=== PATIENT | female | born 1970 | race Caucasian/White ===

== ENCOUNTER 2017-04-19 20:27 | Emergency (ER) | payer SELFPAY ==
[2017-04-19] MEDS: 0.9 % SODIUM CHLORIDE 1,000 ML IV ONE (20:45)
[2017-04-19] MEDS: KETOROLAC TROMETHAMINE 30 MG/1ML VIAL IVP ONE (21:00)
--- NOTE | 2017-04-19 21:06 | ED Physician Documentation ---
General Adult - HISTORIAN Historian: patient - HPI Stated Complaint: POSS KIDNEY STONE Chief Complaint: General Adult Onset: days ago (7) Further Comments: yes (47 year old female patient presents with complaints of urinary frequency and right lower back pain x 7 days. Patient concerned she has a kidney stone again. Patient denies fever, chills, cough or chest pain. C/O diarrhea and nausea.) - ROS CONST: no problems EYES/ENT: none CVS/RESP: none GI/: problems urinating, nausea, diarrhea. denies: abdominal pain, vomiting MS/SKIN/LYMPH: none NEURO/PSYCH: denies: headache - PAST HX Past History: renal disease Surgeries/Procedures: BTL Allergies/Adverse Reactions: Allergies Allergy/AdvReac Type Severity Reaction Status Date / Time acetaminophen [From Vicodin] AdvReac Intermediate Nausea/Vomi Verified 04/19/17 20:39 ting hydrocodone bitartrate AdvReac Intermediate Nausea/Vomi Verified 04/19/17 20:39 [From Vicodin] ting Home Medications: Ambulatory Orders Medication Instructions Recorded NK [NK] 04/19/17 - SOCIAL HX Smoking History: cigarettes - FAMILY HX Family History: No - VITAL SIGNS Vital Signs: Vital Signs Temp Pulse Resp BP Pulse Ox 98.6 F 93 H 18 105/74 97 04/19/17 20:27 04/19/17 20:27 04/19/17 20:27 04/19/17 20:27 04/19/17 20:27 - REVIEWED ASSESSMENTS Nursing Assessment Reviewed: Yes Vitals Reviewed: Yes Progress - Progress Progress: Patient medicated for pain with toradol and norflex. Zofran given for nausea. Patient states she feels better at discharge. Instructed to use OTC anti diarrheal. ED Results Lab/Radiology - Orders Orders: ED Orders Category Date Time Status CBC/PLATELET/DIFF Stat Lab 04/19/17 21:00 Received CMP Stat Lab 04/19/17 21:00 Received UA W/MICRO IF INDICATED Stat Lab 04/19/17 20:36 Ordered 0.9 % Sodium Chloride [Normal Saline] 1,000 ml Med 04/19/17 20:36 Discontinued IV NOW Ketorolac Tromethamine [Toradol] Med 04/19/17 20:36 Discontinued 30 mg IVP NOW ONE Ondansetron HCl/Pf [Zofran 4 mg/2 ml] Med 04/19/17 21:04 Discontinued 4 mg IVP NOW ONE General Adult Physical Exam - PHYSICAL EXAM GENERAL APPEARANCE: mild distress EENT: eye inspection normal, ANKUSH RESPIRATORY: no resp distress, chest non-tender, breath sounds normal CVS: reg rate & rhythm, heart sounds normal, equal pulses, no murmur, no gallop , PMI nml, no JVD, no friction rub, 24 ABDOMEN: soft, no organomegaly, normal bowel sounds, no abdominal bruit, no distension BACK: normal inspection, no CVA tenderness, other (right paraspinous lumbar pain with palpation, no radiation of pain) EXTREMITIES: non-tender, normal range of motion, no evidence of injury, no edema , J, NURSING MANAGER NEURO: oriented X3, CN's nml as tested, motor nml, sensation nml, mood/affect nml Discharge Clincal Impression: Dysuria Diarrhea Qualifiers: Diarrhea type: unspecified type Qualified Code(s): R19.7 - Diarrhea, unspecified Low back strain Qualifiers: Encounter type: initial encounter Qualified Code(s): S39.012A - Strain of muscle, fascia and tendon of lower back, initial encounter Referrals: Primary Doctor,No [Primary Care Provider] - 2 Days Additional Instructions: Diet: Clear liquids Sprite/7-up Juices apple, white grape Gatorade/Powerade Jello Popsicles When tolerating clear liquids, advance to bland/brat diet - such as crackers, rice, Bananas, apples/applesauce or toast Return to the emergency department or call your doctor, if you are having severe abdominal pain, fever >101.0, or if there is blood in the vomit or diarrhea, or you cannot keep down liquids or solid food. Fever: Use Tylenol or Ibuprofen as needed per package directions Tylenol 500mg po q4h prn pain Ibuprofen 800mg po TID prn pain - do not take for more than 4 days. OTC antidiarrheal of your choice. Home Medications: Ambulatory Orders NK [NK] 04/19/17 Condition: Stable Disposition: 01 HOME, SELF-CARE Decision to Admit: NO Decision Time: 21:47
[2017-04-19 21:09] LABS: MEAN CORPUSCULAR HEMOGLOBIN 31.5 pg (28.0-34.0); MEAN CORPUSCULAR VOLUME 91.5 fl (80.0-100.0)
[2017-04-19 21:18] LABS: eGFR (African) > 60; eGFR (Non-African) > 60
[2017-04-19] MEDS: ORPHENADRINE CITRATE 60 MG/2ML IM ONE (21:45)
[2017-04-19] MEDS: ONDANSETRON HCL/PF 4 MG/ 2ML VIAL IVP ONE (21:55)
[2017-04-19 22:18] VITALS: BP 110/84
[2017-04-20 05:21] LABS: APPEARANCE,URINE CLEAR (CLEAR); COLOR,URINE YELLOW (YELLOW); OCCULT BLOOD,URINE NEGATIVE (NEGATIVE); UROBILINOGEN URINE 0.2 Eu (0.2-1.0)
[2017-04-20 09:32] LABS: EOSINOPHILS % 2 % (0-7); MONOCYTES % 2 % (0-11); SEGMENTED NEUTROPHILS % 92 % (39-79)
== END 2017-04-19 22:10 | disposition home or self-care (01) ==
LOC: ED 20:27
DX: R30.0 Dysuria (principal); R19.7 Diarrhea, unspecified; S39.012A Strain of muscle, fascia and tendon of lower back, initial encounter; X58.XXXA Exposure to other specified factors, initial encounter; Y93.9 Activity, unspecified; Y99.9 Unspecified external cause status
CPT/HCPCS: 80053; 85025; J1885; J2360; J2405; J7030; 81002; 96361; 96374; 96375; 99283; S1016